=== PATIENT | female | born 1960 | race Caucasian/White ===

== ENCOUNTER 2018-12-09 14:01 | Outpatient (CLI) | payer OTHER ==
--- NOTE | 2018-12-09 14:31 | RAD ---
PA AND LATERAL CHEST: History: Dyspnea. Comparison: 06-10-13 FINDINGS: Heart size is within normal limits. There are atherosclerotic changes of the aorta. The lungs are liz ar of infiltrates. There are arthritic changes of the spine. The bones appear demineralized. IMPRESSION: No active intrathoracic disease. POS: [facility]
== END 2018-12-09 14:02 | disposition home or self-care (01) ==
LOC: RAD 14:01
PROVIDERS: ATTEND Internal Medicine Pulmonary Disease
DX: R06.00 Dyspnea, unspecified (principal)
CPT/HCPCS: 71046

== ENCOUNTER 2021-10-11 15:20 | Outpatient (CLI) | payer OTHER | END 2021-10-11 15:21 | disposition home or self-care (01) | LOC: TBSIIMAG 15:20 | PROVIDERS: ATTEND Nurse Practitioner Family | DX: M79.601 Pain in right arm (principal); M25.611 Stiffness of right shoulder, not elsewhere classified; R29.898 Other symptoms and signs involving the musculoskeletal system; M25.411 Effusion, right shoulder ==

== ENCOUNTER 2021-12-10 13:41 | Outpatient (CLI) | payer OTHER ==
[2021-12-10 15:30] LABS: #Basophils 0.1 10x3/uL (0.0-0.2); #Eosinphils 0.2 10x3/uL (0.0-0.5); #Monocytes 0.6 10x3/uL (0.0-1.1); #Neutrophils 5.1 10x3/uL (1.5-8.4); %Basophils 0.6 % (0.0-2.0); %Lymphocytes 37.2 % (18.0-47.0); %Monocytes 6.7 % (0.0-10.0); %Neutrophils 53.3 % (40.0-75.0); Hemoglobin 13.8 g/dL (12.0-15.5); Mean Corpuscular Hemoglobin 28.6 pg (27.0-33.0); Mean Corpuscular Volume 86.7 fl (81.6-98.3); Mean Platelet Volume 10.6 fl (7.4-10.4); Platelet Count 375 10x3/uL (150-450); RBC Distribution Width 13.3 % (11.5-14.5); Red Blood Cell (RBC) Count 4.82 10x6/uL (3.90-5.03); White Blood Cell (WBC) Count 9.5 10x3/uL (3.5-10.5)
[2021-12-10 15:38] LABS: Anion Gap 13 mmol/L (10-20); BUN (Urea Nitrogen) 14 mg/dL (9.8-20.1); Calc. Creatinine Clearance 0 mL/min (70-130); Carbon Dioxide 24 mmol/L (22-29); Chloride 106 mmol/L (98-107); Glucose 81 mg/dL (70-105); Potassium 4.2 mmol/L (3.5-5.1); Sodium 139 mmol/L (136-145)
[2021-12-11 08:27] LABS: SARS-CoV-2 PCR by NAA Not Detected (NotDetected)
== END 2021-12-10 13:42 | disposition home or self-care (01) ==
LOC: LABBT 13:41
PROVIDERS: ATTEND Orthopaedic Surgery
DX: Z01.818 Encounter for other preprocedural examination (principal); S46.011A Strain of muscle(s) and tendon(s) of the rotator cuff of right shoulder, initial encounter; Z20.822 Contact with and (suspected) exposure to COVID-19
CPT/HCPCS: 80048; 85025; 93005; 93010; U0003; U0005

== ENCOUNTER 2021-12-13 09:07 | Day surgery (SDC) | payer OTHER ==
[2021-12-06 10:12] VITALS: BMI 22.8
[2021-12-13] MEDS ORDERED: Sodium Chloride 0.9% 10 ML ONE (10:06)
[2021-12-13] MEDS ORDERED: Fentanyl 100 MCG/2 ML VIAL ONE ×2 (10:06→10:20)
[2021-12-13] MEDS ORDERED: Midazolam HCl 2 mg/2 ml Vial ONE (10:06)
[2021-12-13] MEDS ORDERED: Clindamycin/D5W 600 mg/50 ml Premix Bag ONE (10:31)
[2021-12-13] MEDS ORDERED: Xylocaine 1% w/ Epi 1:100K 10 ML VIAL ONE (10:46)
[2021-12-13] MEDS ORDERED: SUGAMMADEX SODIUM 200 MG/2 ML VIAL ONE (11:43)
[2021-12-13] MEDS ORDERED: Ropivacaine 0.2% 550 ML 550 ML NERVE BLCK SCH (11:45)
[2021-12-13] MEDS ORDERED: Zolpidem Tartrate 5 MG TAB PO PRN (11:45)
[2021-12-13] MEDS ORDERED: Ketorolac Tromethamine 30 MG/ML VIAL IVP PRN (11:45)
[2021-12-13] MEDS ORDERED: traMADol HCl 50 MG TAB PO PRN ×2 (11:45)
[2021-12-13] MEDS ORDERED: Ondansetron PF 4 MG/2 ML Vial IVP PRN (11:45)
[2021-12-13] MEDS ORDERED: HYDROcodone/Acetaminophen 5/325 mg Tablet PO PRN ×2 (11:45)
[2021-12-13] MEDS ORDERED: Promethazine HCl 25 MG/ML VIAL IM PRN (11:45)
== END 2021-12-13 15:23 | disposition home or self-care (01) ==
LOC: SDC 09:07
PROVIDERS: ATTEND Orthopaedic Surgery
PROC: 0LQ14ZZ Repair Right Shoulder Tendon, Percutaneous Endoscopic Approach (ICD-10-PCS; principal; 2021-12-13)
PROC: 3E0T3BZ Introduction of Anesthetic Agent into Peripheral Nerves and Plexi, Percutaneous Approach (ICD-10-PCS; principal; 2021-12-13)
DX: S46.011A Strain of muscle(s) and tendon(s) of the rotator cuff of right shoulder, initial encounter (principal); S43.431A Superior glenoid labrum lesion of right shoulder, initial encounter; M19.011 Primary osteoarthritis, right shoulder; M65.811 Other synovitis and tenosynovitis, right shoulder; M06.9 Rheumatoid arthritis, unspecified; F17.200 Nicotine dependence, unspecified, uncomplicated; Z79.1 Long term (current) use of non-steroidal anti-inflammatories (NSAID); Z79.899 Other long term (current) drug therapy; Z88.0 Allergy status to penicillin; Z88.1 Allergy status to other antibiotic agents; Z88.5 Allergy status to narcotic agent; Z98.1 Arthrodesis status; W01.0XXA Fall on same level from slipping, tripping and stumbling without subsequent striking against object, initial encounter
CPT/HCPCS: A4306; C1713; J2250; J2795; J3010; J3490

== ENCOUNTER 2023-07-10 09:19 | Outpatient (CLI) | payer OTHER | END 2023-07-10 09:20 | disposition home or self-care (01) | LOC: BICCT 09:19 | PROVIDERS: ATTEND Nurse Practitioner Family | DX: Z12.2 Encounter for screening for malignant neoplasm of respiratory organs (principal); R91.1 Solitary pulmonary nodule; J43.9 Emphysema, unspecified; F17.210 Nicotine dependence, cigarettes, uncomplicated | CPT/HCPCS: 71271 ==